=== PATIENT | female | born 1955 | race Caucasian/White ===

== ENCOUNTER 2023-04-22 12:21 | Emergency (ER) | payer MEDICARE, SELFPAY ==
[2023-04-22] VITALS (18 sets, daily range): BP systolic 114–131; BP diastolic 66–74; PULSE 56–73; RESP 13–23; TEMP 36.4; O2SAT 96–100
--- NOTE | ~2023-04-22 | CT_ITS ---
EXAMINATION: CT BRAIN W/O DATE: 04/22/2023 14:26 INDICATION: Dizziness TECHNIQUE: Computed tomography (CT) of the head was performed without intravenous contrast. The dose- length product was 681.00 mGy-cm. Automated exposure control and iterative reconstruction technique w ere employed. COMPARISON: No prior studies for comparison. FINDINGS: Normal brain parenchymal volume for age. Normal marley-white differentiation. No acute intrac ranial hemorrhage, infarction, mass or mass effect. There are chronic right lacunar infarctions. Ther e is intracranial atherosclerosis. There are scattered mild periventricular and subcortical white mat ter changes, most likely related to small vessel ischemic disease (microangiopathy). No ventriculomegaly or midline shift. Midline sagittal images demonstrate a normal corpus callosum, c raniovertebral junction and sella turcica. Basilar cisterns are patent. Paranasal sinuses and mastoids are pneumatized. No depressed skull fractures. IMPRESSION: 1. No acute intracranial abnormality. 2: Chronic right lacunar infarctions. Reviewed, dictated and finalized at location B.
[2023-04-22] MEDS: diazePAM INJ (*CRX) 10 MG/2 ML SYRINGE 5 MG IV PUSH (12:57)
[2023-04-22] MEDS: SODIUM CHLORIDE 0.9% IV 1,000 ML 999 ML IV CONT (12:57)
[2023-04-22 12:59] LABS: Basophils Absolute Auto 0.1 K/mm3 (0.0-0.1); Basophils Percent Auto 0.8 % (0.2-1.2); Eosinophils Absolute Auto 0.2 K/mm3 (0-0.3); Eosinophils Percent Auto 3.8 % (0-4.4); Hematocrit 37.5 % (37.0-47.0); Hemoglobin 12.4 g/dL (12.0-15.0); Immature Granulocyte Absolute 0.07 K/mm3 (0.00-0.031); Immature Granulocyte Percent A 1.2 % (0-0.5); Lymphocytes Absolute Auto 1.11 K/mm3 (0.9-3.2); Lymphocytes Percent Auto 18.3 % (18.3-44.2); Mean Corpuscular HGB Conc 33.1 g/dl (32-36); Mean Corpuscular Hemoglobin 30.6 pg (26-34); Mean Corpuscular Volume 92.6 fl (80-100); Mean Platelet Volume 9.4 fl (7.4-10.4); Monocytes Absolute Auto 0.5 K/mm3 (0.1-0.6); Monocytes Percent Auto 8.7 % (2.6-8.5); Neutrophils Absolute Auto 4.1 K/mm3 (1.3-6.7); Neutrophils Percent Auto 67.2 % (45.5-73.1); Platelet Count Result 216 k/mm3 (150-375); Red Blood Count 4.05 M/mm3 (4.2-5.4); Red Cell Distribution Width 12.3 % (11.5-14.5); White Blood Count 6.1 K/mm3 (4.5-10.0)
[2023-04-22 13:08] LABS: Alanine Aminotransferase 33 U/L (6-35); Albumin Level 4.4 g/dL (3.5-5.1); Alkaline Phosphatase 71 U/L (38-126); Anion Gap 7 mmol/L (8-16); Aspartate Amino Transferase 32 U/L (14-36); Bilirubin,Total 0.5 mg/dL (0.2-1.3); Blood Urea Nitrogen 27 mg/dL (7-17); Calcium 10.5 mg/dL (8.4-10.2); Carbon Dioxide 25 mmol/L (22-30); Chloride 101 mmol/L (98-107); Estimated CRCL calculation 41 ml/min; Estimated Glomerular Filt Rate 37; Glucose 112 mg/dL (65-110); Potassium 4.4 mmol/L (3.4-5.0); Sodium 133 mmol/L (137-145)
[2023-04-22] MEDS: MECLIZINE HCL 25 MG TABLET PO (14:03)
[2023-04-22 14:10] LABS: Appearance Urine Clear (Clear); Bacteria Urine None Seen /hpf; Bilirubin Urine Negative (Negative); Blood Urine Negative (Negative); Color Urine Yellow (Yellow); Glucose Urine UA Negative (Negative); Ketones Urine Negative (Negative); Leukocyte Esterase Ur 1+ LEU/UL (Negative); Need Manual Microscopic Reviewed; Nitrate Urine Negative (Negative); Non Pathogenic Casts 0-2; Protein Urine Negative (Negative); RBC Urine 0-2 /hpf (0-2); Specific Grav Ur 1.006 (1.001-1.035); Squamous Epithelial Cell Urine None seen /hpf (Few); Urobilinogen Urine 0.2 mg/dL (<2.0); WBC Urine 0-5 /hpf; pH Urine 6.5 (5.0-9.0)
[2023-04-22 14:11] LABS: Add Urine Microscopic? YES
--- NOTE | 2023-04-22 14:16 | PC.NURSE ---
family requesting head CT. provider aware and new orders received
--- NOTE | 2023-04-22 15:26 | ED.NEUROSD ---
HPI - Neuro Symptoms/Deficit General Chief Complaint: Neuro Symptoms/Deficit Stated Complaint: dizziness and headache Time Seen by Provider: 04/22/23 12:28 History of Present Illness HPI Narrative: Patient is a 15-year-old female who presents ER with dizziness. Sudden onset this morning when she bent over to pick something up. She felt like the room was spinning. She was sweaty and nauseated when it began. Symptoms improved with sitting down and resting. She tried some home meclizine with minimal improvement. Symptoms continue to return if she bends over or if she turns her head from side to side. No numbness or weakness in arm or leg. No slurred speech. Related Data Home Medications Medication Instructions Recorded Confirmed allopurinol 100 mg tablet 100 mg PO DAILY 01/10/23 01/11/23 amlodipine 10 mg tablet 10 mg PO DAILY 01/10/23 01/11/23 aspirin 81 mg tablet,delayed 81 mg PO DAILY 01/10/23 01/11/23 release (Adult Low Dose Aspirin) cholecalciferol (vitamin D3) 50 50 mcg PO BID 01/10/23 01/11/23 mcg (2,000 unit) capsule clobetasol 0.05 % topical gel 1 applic topical TID 01/10/23 01/11/23 colchicine (gout) 0.6 mg tablet 0.6 mg PO .PRN 01/10/23 01/11/23 docusate sodium 100 mg capsule 100 mg PO DAILY 01/10/23 01/11/23 fluticasone propionate 50 1 spray intranasal DAILY 01/10/23 01/11/23 mcg/actuation nasal spray,suspension hydrochlorothiazide 25 mg tablet 25 mg PO DAILY 01/10/23 01/11/23 lisinopril 40 mg tablet 40 mg PO BID 01/10/23 01/11/23 metoprolol tartrate 100 mg tablet 100 mg PO BID 01/10/23 01/11/23 Allergies Allergy/AdvReac Type Severity Reaction Status Date / Time No Known Allergies Allergy Mild Unverified 01/10/23 10:01 Review of Systems Review of Systems: All systems reviewed & are unremarkable except as noted in HPI and below Constitutional: Constitutional: Denies chills, Denies fatigue and Denies fever(s) ENT: Reports nasal congestion Comments: Chronic postnasal drip, pressure in the ears bilaterally Cardiovascular: Cardiovascular: Denies chest pain, Denies rapid heart rate and Denies radiating jaw, neck or arm pain Respiratory: Respiratory: Denies cough and Denies dyspnea Gastrointestinal: Gastrointestinal: Denies diarrhea, Reports nausea and Denies vomiting Neurologic: Reports vertigo, Denies syncope, Denies headache(s), Denies focal weakness and Denies numbness PMFSH Past Medical History Medical History (Updated 04/22/23 @ 15:31 by Luis Elmore MD) Chronic kidney disease Hypertension Lung nodule Right renal mass Surgical History Surgical History (Updated 04/22/23 @ 15:28 by Luis Elmore MD) History of spinal surgery Family History Family History Mother Hypertension Family history of diabetes mellitus in first degree relative Father Cerebrovascular accident Social History Social History Smoking status: Never smoker Alcohol intake: current Lack of Transportation: No Lack of Food: Never True Current Housing: I Have Housing Concerned About Future Housing: No Difficulty Paying Gas/Electric Bills: No Difficulty Paying for Meds: No Currently Unemployed: No Education: Bachelor's Degree Difficulty w/ Childcare or Family Care: No Occupation/Education: retired Gender identity (if verbalized by the patient): Female Exam Narrative: GENERAL: Well-appearing, well-nourished, and in no acute distress. HEAD: Normocephalic, atraumatic. Eyes: PERRL, EOMI, no nystagmus. ENT: Mucous membranes moist. Air bubble behind right TM. Normal left TM. NECK: Supple. CHEST: Clear to auscultation. No respiratory distress. HEART: Regular rate and rhythm. Normal peripheral pulses. EXTREMITIES: Normal range of motion. No edema. SKIN: Warm, dry, no rash. NEURO: Alert and oriented x3. No upper or lower extremity drift. Normal heel-to
== END 2023-04-22 15:51 | disposition home or self-care (01) ==
PROVIDERS: Emergency Provider Emergency Medicine
DX: R42 Dizziness and giddiness (principal); I12.9 Hypertensive chronic kidney disease with stage 1 through stage 4 chronic kidney disease, or unspecified chronic kidney disease; N18.9 Chronic kidney disease, unspecified
CPT/HCPCS: 36415; 70450; 80053; 81001; 85025; 96361; 96374; 99284; A9270; J3360; J7030